=== PATIENT | female | born 1975 | race Caucasian/White ===

== ENCOUNTER → 2017-12-18 | Outpatient (CLI) | payer BC ==
[~2017-12-18] MED LIST: FLONASE NASAL S16 GM NS; LEXAPRO 10MG10 MG PO
== END ==
LOC: MC.RAD 08:40
DX: Z12.31 Encounter for screening mammogram for malignant neoplasm of breast (principal)

== ENCOUNTER → 2019-12-04 | Outpatient (CLI) | payer BC | LOC: MC.RAD 08:00 | DX: Z12.31 Encounter for screening mammogram for malignant neoplasm of breast (principal); N63.20 Unspecified lump in the left breast, unspecified quadrant ==

== ENCOUNTER → 2019-12-10 | Outpatient (CLI) | payer BC | LOC: MC.RAD 07:30 | DX: N63.20 Unspecified lump in the left breast, unspecified quadrant (principal) | CPT/HCPCS: G0279 ==

== ENCOUNTER → 2021-05-13 | Outpatient (CLI) | payer BC | LOC: MC.RAD 10:36 | DX: Z12.31 Encounter for screening mammogram for malignant neoplasm of breast (principal) ==

== ENCOUNTER → 2023-11-12 | Outpatient (CLI) | payer BC | LOC: MC.RAD 07:00 | DX: N60.11 Diffuse cystic mastopathy of right breast (principal) ==